=== PATIENT | male | born 1955 | race Caucasian/White ===

== ENCOUNTER 2020-09-20 14:31 | Outpatient (CLI) | payer BC ==
--- NOTE | 2020-09-20 15:15 | XRAY Report ---
PROCEDURE: Finger(s) RT INDICATIONS: FISH HOOK TO RIGHT 3RD DIGIT/FOREIGN BODY IN FINGER TECHNIQUE: AP hand, 4 views of the third finger(s) acquired. COMPARISON: None FINDINGS: Bones: No fractures or dislocations. No suspicious bony lesions. Soft tissues: No suspicious soft tissue calcifications. There is a 3 cm J-shaped metallic density o verlying the distal aspect of the third digit. IMPRESSION: J shaped metallic foreign body without fracture. Reviewed by: Delores Leone MD on 09/20/2020 3:14 PM PDT Approved by: Delores Leone MD on 09/20/2020 3:14 PM PDT Station ID: [id number]
== END 2020-09-20 23:59 | disposition home or self-care (01) ==
LOC: DI.S 14:31
PROVIDERS: ATTEND Physician Assistant Medical
DX: S60.452A Superficial foreign body of right middle finger, initial encounter (principal)